=== PATIENT | male | born 1960 | race Caucasian/White ===

== ENCOUNTER 2017-04-26 13:39 | Inpatient (IN) | payer OTHER ==
[~2017-04-26] VITALS: Ht 175.3 cm; Wt 84.6 kg
[2017-04-26 14:48] LABS: Basophils # (auto) 0 uL; Basophils % (auto) 0.5 % (0.0-2.0); Eosinophils # (auto) 0 uL; Eosinophils % (auto) 0.9 % (0.0-7.0); Hematocrit 41.8 % (41.0-53.0); Hemoglobin 13.9 g/dL (13.5-17.5); Lymphocytes # (auto) 0.8 uL; Lymphocytes % (auto) 16.5 % (10.0-50.0); Mean Corpuscular Hgb Conc. 33.4 g/dL (32.0-36.0); Mean Platelet Volume 8.1 fL (6.9-10.8); Monocytes # (auto) 0.7 uL; Monocytes % (auto) 13.6 % (0.0-12.0); Neutrophils # (auto) 3.5 uL; Neutrophils % (auto) 68.5 % (37.0-80.0); Nucleated Red Blood Cells % 0.2 %; Platelet Count (auto) 142 10^3/uL (140-450); Red Cell Distribution Width 15.1 % (11.8-14.3); White Blood Cell 5.1 10^3/uL (4.4-10.8)
[2017-04-26 14:49] LABS: Albumin 3.6 g/dL (3.4-5.0); BUN/Creatinine Ratio 15.6; Bilirubin, Total 1.4 mg/dL (0.2-1.0); Calcium 8.4 mg/dL (8.5-10.1); Potassium 4.4 mmol/L (3.5-5.1); Total Protein 6.7 g/dL (6.4-8.2)
[2017-04-26 16:30] LABS: B-Type Natriuretic Peptide 383.19 pg/mL (0-100)
[2017-04-26 16:36] LABS: Temperature: 22.7 C (20.0-25.0)
[2017-04-26] MEDS ORDERED: ONDANSETRON HCL 4 MG/2 ML VIAL IV PRN (18:00)
[2017-04-26] MEDS ORDERED: MORPHINE SULF INJ 2 MG/ML SYRINGE 1ML IV PRN ×2 (18:00)
[2017-04-26] MEDS ORDERED: TEMAZEPAM 15 MG CAP PO PRN (18:00)
[2017-04-26] MEDS ORDERED: DOCUSATE SOD 100 MG CAP PO PRN (18:00)
[2017-04-26] MEDS ORDERED: NITROGLYCERIN 0.4 MG SL TAB SL PRN (18:00)
[2017-04-26] MEDS ORDERED: ACETAMINOPHEN 325 MG TAB PO PRN (18:00)
[2017-04-26] MEDS: FUROSEMIDE 40 MG/4 ML VIAL IV SCH (18:00)
[2017-04-26] MEDS ORDERED: HYDROcodone-ACET 5/325MG TAB PO PRN (18:00)
[2017-04-26 18:12] LABS: Urine Bilirubin Negative (Negative); Urine Blood Negative /uL (Negative); Urine Color Yellow (Yellow); Urine Glucose Normal (Normal); Urine Ketone 1+ (Negative); Urine Mucus FEW (None Seen); Urine Nitrite Negative (Negative); Urine RBC <1 /hpf (0 - 3); Urine Squamous Epithelial Cell FEW /hpf (<5); Urine Urobilinogen Normal (Negative); Urine pH 5.5 (5.0-8.0)
[2017-04-26] MEDS: ALBUTEROL SULF 2.5 MG/0.5ML(0.5%) NEB SOLN NEB SCH (18:35)
[2017-04-26 18:42] LABS: Temperature: 23.5 C (20.0-25.0)
[2017-04-26 21:48] VITALS: BP 130/83
[2017-04-26] MEDS: POTASSIUM CHL 10 Meq TABLET PO SCH (21:52)
[2017-04-26] MEDS: FAMOTIDINE 20 MG TAB PO SCH (21:53)
[2017-04-26] MEDS: SODIUM CHLOR 0.9% PF (SALINE LOCK) 10ML VIAL IV SCH (21:53)
[2017-04-27] MEDS: ALBUTEROL SULF 2.5 MG/0.5ML(0.5%) NEB SOLN NEB SCH ×4 (01:21→18:45)
[2017-04-27 04:01] LABS: Basophils # (auto) 0 uL; Basophils % (auto) 0.7 % (0.0-2.0); Eosinophils # (auto) 0.1 uL; Eosinophils % (auto) 2.4 % (0.0-7.0); Hematocrit 42.4 % (41.0-53.0); Hemoglobin 14.1 g/dL (13.5-17.5); Mean Corpuscular Hemoglobin 34.1 pg (28.0-32.0); Mean Corpuscular Hgb Conc. 33.2 g/dL (32.0-36.0); Mean Corpuscular Volume 102.6 fL (80.0-100.0); Mean Platelet Volume 8.1 fL (6.9-10.8); Monocytes # (auto) 0.7 uL; Monocytes % (auto) 15.3 % (0.0-12.0); Neutrophils # (auto) 2.6 uL; Neutrophils % (auto) 59.6 % (37.0-80.0); Nucleated Red Blood Cells % 0.2 %; Platelet Count (auto) 155 10^3/uL (140-450); Red Cell Distribution Width 14.8 % (11.8-14.3); White Blood Cell 4.4 10^3/uL (4.4-10.8)
[2017-04-27 04:11] LABS: INR 1.15 (0.9-1.15); Prothrombin Time 12.5 sec (9.37-12.3)
[2017-04-27 04:23] LABS: Albumin 3.4 g/dL (3.4-5.0); Calcium 8.3 mg/dL (8.5-10.1); Potassium 4.3 mmol/L (3.5-5.1)
[2017-04-27 04:27] LABS: BUN/Creatinine Ratio 16.5; Total Protein 6.1 g/dL (6.4-8.2)
[2017-04-27 04:29] LABS: Bilirubin, Total 0.7 mg/dL (0.2-1.0)
[2017-04-27] MEDS: SODIUM CHLOR 0.9% PF (SALINE LOCK) 10ML VIAL IV SCH ×3 (06:13→22:03)
[2017-04-27] MEDS: FUROSEMIDE 40 MG/4 ML VIAL IV SCH ×2 (06:17→17:54)
[2017-04-27] MEDS ORDERED: ENOXAPARIN SOD 40 MG/0.4 ML SYRINGE SC SCH (10:00)
[2017-04-27] MEDS: POTASSIUM CHL 10 Meq TABLET PO SCH ×2 (10:16→22:05)
[2017-04-27] MEDS: MULTIPLE VITAMIN TAB PO SCH (10:16)
[2017-04-27] MEDS: FAMOTIDINE 20 MG TAB PO SCH ×2 (10:16→22:03)
[2017-04-27] MEDS: ALLOPURINOL 300 MG TAB PO SCH (10:16)
[2017-04-27] MEDS: LISINOPRIL 5 MG TAB PO SCH (18:07)
[2017-04-27] MEDS: RIVAROXABAN 20 MG TAB PO SCH (19:12)
[2017-04-27 21:10] VITALS: BP 149/84
[2017-04-27 21:29] VITALS: BP 149/84
[2017-04-27] MEDS ORDERED: ALLO300T2 PO (21:53)
[2017-04-27] MEDS: CARVEDILOL 3.125 MG TAB PO SCH (22:05)
[2017-04-28] VITALS: BP 126/67
[2017-04-28] MEDS: ALBUTEROL SULF 2.5 MG/0.5ML(0.5%) NEB SOLN NEB SCH ×4 (00:45→18:31)
[2017-04-28 03:50] VITALS: BP 106/77
[2017-04-28 05:18] LABS: Basophils # (auto) 0 uL; Basophils % (auto) 0.9 % (0.0-2.0); Eosinophils # (auto) 0.1 uL; Eosinophils % (auto) 2.6 % (0.0-7.0); Hematocrit 44.9 % (41.0-53.0); Hemoglobin 14.9 g/dL (13.5-17.5); Lymphocytes # (auto) 0.9 uL; Lymphocytes % (auto) 19.3 % (10.0-50.0); Mean Corpuscular Hemoglobin 33.8 pg (28.0-32.0); Mean Corpuscular Hgb Conc. 33.1 g/dL (32.0-36.0); Mean Corpuscular Volume 102.2 fL (80.0-100.0); Mean Platelet Volume 7.9 fL (6.9-10.8); Monocytes # (auto) 0.7 uL; Monocytes % (auto) 14.7 % (0.0-12.0); Neutrophils % (auto) 62.5 % (37.0-80.0); Nucleated Red Blood Cells % 0.1 %; Platelet Count (auto) 157 10^3/uL (140-450); Red Cell Distribution Width 14.7 % (11.8-14.3); White Blood Cell 4.8 10^3/uL (4.4-10.8)
[2017-04-28 05:37] LABS: Albumin 3.2 g/dL (3.4-5.0); BUN/Creatinine Ratio 13.9; Calcium 8.6 mg/dL (8.5-10.1); Potassium 4.6 mmol/L (3.5-5.1)
[2017-04-28 05:44] LABS: Bilirubin, Total 0.7 mg/dL (0.2-1.0); Total Protein 6.3 g/dL (6.4-8.2)
[2017-04-28] MEDS: SODIUM CHLOR 0.9% PF (SALINE LOCK) 10ML VIAL IV SCH ×3 (06:59→22:17)
[2017-04-28] MEDS: FUROSEMIDE 40 MG/4 ML VIAL IV SCH ×2 (06:59→17:44)
[2017-04-28 07:30] VITALS: BP 130/77
[2017-04-28] MEDS: FAMOTIDINE 20 MG TAB PO SCH ×2 (09:06→22:17)
[2017-04-28] MEDS: POTASSIUM CHL 10 Meq TABLET PO SCH ×2 (09:06→22:17)
[2017-04-28] MEDS: CARVEDILOL 3.125 MG TAB PO SCH ×2 (09:06→22:00)
[2017-04-28] MEDS: MULTIPLE VITAMIN TAB PO SCH (09:06)
[2017-04-28] MEDS: ALLOPURINOL 300 MG TAB PO SCH (09:07)
[2017-04-28] MEDS: LISINOPRIL 5 MG TAB PO SCH (09:07)
[2017-04-28] MEDS: CARVEDILOL 3.125 MG TAB PO ONE ×2 (09:45→11:28)
[2017-04-28 11:33] VITALS: BP 99/68
[2017-04-28 16:00] VITALS: BP 100/58
[2017-04-28] MEDS: RIVAROXABAN 20 MG TAB PO SCH (17:45)
[2017-04-29] VITALS (7 sets, daily range): BP systolic 95–126; BP diastolic 60–81
[2017-04-29] MEDS: ALBUTEROL SULF 2.5 MG/0.5ML(0.5%) NEB SOLN NEB SCH ×4 (00:03→18:45)
[2017-04-29 05:26] LABS: Albumin 3.1 g/dL (3.4-5.0); BUN/Creatinine Ratio 15.9; Bilirubin, Total 0.7 mg/dL (0.2-1.0); Calcium 8.5 mg/dL (8.5-10.1); Potassium 4.2 mmol/L (3.5-5.1); Total Protein 6.2 g/dL (6.4-8.2)
[2017-04-29 05:31] LABS: B-Type Natriuretic Peptide 118.35 pg/mL (0-100); Temperature: 21.9 C (20.0-25.0)
[2017-04-29] MEDS: SODIUM CHLOR 0.9% PF (SALINE LOCK) 10ML VIAL IV SCH ×3 (06:00→22:07)
[2017-04-29] MEDS: FUROSEMIDE 40 MG/4 ML VIAL IV SCH ×2 (06:00→18:19)
[2017-04-29] MEDS ORDERED: AMIODARONE HCL 900 MG in DEXTROSE 500 ML IV SCH (09:43)
[2017-04-29] MEDS: POTASSIUM CHL 10 Meq TABLET PO SCH ×2 (10:18→22:01)
[2017-04-29] MEDS: MULTIPLE VITAMIN TAB PO SCH (10:18)
[2017-04-29] MEDS: FAMOTIDINE 20 MG TAB PO SCH ×2 (10:18→22:02)
[2017-04-29] MEDS: LISINOPRIL 5 MG TAB PO SCH (10:19)
[2017-04-29] MEDS: CARVEDILOL 3.125 MG TAB PO SCH ×2 (10:19→22:02)
[2017-04-29] MEDS: ALLOPURINOL 300 MG TAB PO SCH (10:20)
[2017-04-30] VITALS: BP 101/71
[2017-04-30] MEDS: ALBUTEROL SULF 2.5 MG/0.5ML(0.5%) NEB SOLN NEB SCH ×3 (00:23→12:00)
[2017-04-30 04:00] VITALS: BP 103/72
[2017-04-30] MEDS: FUROSEMIDE 40 MG/4 ML VIAL IV SCH (06:05)
[2017-04-30] MEDS: SODIUM CHLOR 0.9% PF (SALINE LOCK) 10ML VIAL IV SCH ×2 (06:05→14:20)
[2017-04-30 08:00] VITALS: BP 108/71
[2017-04-30] MEDS: RIVAROXABAN 20 MG TAB PO SCH (08:02)
[2017-04-30] MEDS: AMIODARONE HCL 900 MG in DEXTROSE 500 ML IV SCH ×2 (08:06→15:43)
[2017-04-30] MEDS: LISINOPRIL 5 MG TAB PO SCH (11:08)
[2017-04-30] MEDS: MULTIPLE VITAMIN TAB PO SCH (11:08)
[2017-04-30] MEDS: FAMOTIDINE 20 MG TAB PO SCH (11:08)
[2017-04-30] MEDS: POTASSIUM CHL 10 Meq TABLET PO SCH (11:08)
[2017-04-30] MEDS: CARVEDILOL 3.125 MG TAB PO SCH (11:08)
[2017-04-30] MEDS: ALLOPURINOL 300 MG TAB PO SCH (11:09)
[2017-04-30] MEDS ORDERED: AMIODARONE HCL 200 MG TAB PO ONE (11:15)
[2017-04-30 12:00] VITALS: BP 107/66
[2017-04-30 15:12] VITALS: BP 97/49
[2017-04-30] MEDS ORDERED: AMIO200T33 PO (15:24)
[2017-04-30] MEDS ORDERED: FURO40TA PO (15:25)
[2017-04-30] MEDS ORDERED: POTA10SO11 PO (15:26)
[2017-04-30] MEDS ORDERED: RIVA20TA PO (15:27)
[2017-04-30] MEDS ORDERED: CARV6.25 PO (15:27)
[2017-04-30] MEDS ORDERED: LISI-275 PO (15:28)
[2017-04-30 16:00] VITALS: BP 94/52
[2017-04-30] MEDS ORDERED: AMIODARONE HCL 200 MG TAB PO SCH (22:00)
== END 2017-04-30 16:17 | disposition home or self-care (01) | DRG 194 ==
LOC: ER 13:39 → TELE 13:40 → DOU IN ICU 04-27 21:08
PROVIDERS: ADMIT Internal Medicine; ATTEND Internal Medicine
DX: I13.0 Hypertensive heart and chronic kidney disease with heart failure and stage 1 through stage 4 chronic kidney disease, or unspecified chronic kidney disease (principal); D68.69 Other thrombophilia; I42.6 Alcoholic cardiomyopathy; E83.51 Hypocalcemia; I48.92 Unspecified atrial flutter; E66.01 Morbid (severe) obesity due to excess calories; I48.91 Unspecified atrial fibrillation; R14.0 Abdominal distension (gaseous); M10.9 Gout, unspecified; J45.909 Unspecified asthma, uncomplicated; N18.2 Chronic kidney disease, stage 2 (mild); G47.00 Insomnia, unspecified; K59.00 Constipation, unspecified; R73.03 Prediabetes; F10.10 Alcohol abuse, uncomplicated; F15.10 Other stimulant abuse, uncomplicated; I70.0 Atherosclerosis of aorta; Z71.41 Alcohol abuse counseling and surveillance of alcoholic; Z83.3 Family history of diabetes mellitus; Z82.49 Family history of ischemic heart disease and other diseases of the circulatory system; Z68.27 Body mass index [BMI] 27.0-27.9, adult; Z79.01 Long term (current) use of anticoagulants; Z71.51 Drug abuse counseling and surveillance of drug abuser; I50.41 Acute combined systolic (congestive) and diastolic (congestive) heart failure
CPT/HCPCS: 36415; 71010; 74176; 80053; 80307; 81001; 82150; 82607; 82746; 83690; 83880; 84443; 84484; 85025; 85610; 87081; 87086; 93005; 93306; 94640; 94761; 96372; 96374; 96375; J2405